=== PATIENT | male | born 1990 | race Asian ===

== ENCOUNTER 2020-06-16 20:22 | Emergency (ER) | payer OTHER ==
[~2020-06-16] VITALS: Ht 175.3 cm; Wt 88.0 kg
[2020-06-16 20:22] VITALS: BP 145/94
[2020-06-16] MEDS ORDERED: LORAZEPAM INJ 2 MG/ML VIAL ONE (20:41)
[2020-06-16] MEDS ORDERED: ONDANSETRON HCL/PF 4 MG/2 ML VIAL ONE (20:41)
[2020-06-16] MEDS: ONDANSETRON HCL/PF 4 MG/2 ML VIAL IM ONE (20:48)
[2020-06-16] MEDS: LORAZEPAM INJ 2 MG/ML VIAL IM ONE (20:48)
--- NOTE | 2020-06-16 20:52 | NUR ---
PT MEDICATED ORDERED BY DEYA SHEPPARD
[2020-06-16] MEDS ORDERED: LIDOCAINE VISCOUS 2% UD 15 ML UDC ONE (20:56)
[2020-06-16] MEDS: LIDOCAINE VISCOUS 2% UD 15 ML UDC MM ONE (21:14)
[2020-06-16] MEDS: MAG HYDROX/AL HYDROX/SIMETH 30 ML UDC PO ONE (21:14)
== END 2020-06-16 21:27 | disposition home or self-care (01) ==
LOC: ER 20:29
DX: F41.9 Anxiety disorder, unspecified (principal); F12.10 Cannabis abuse, uncomplicated; R00.0 Tachycardia, unspecified
CPT/HCPCS: 71045; 93005; 96372 ×2; 99284; J2060; J2405